=== PATIENT | male | born 1950 | race Caucasian/White ===

== ENCOUNTER 2020-06-14 15:20 | Emergency (ER) | payer SELFPAY ==
--- NOTE | 2020-06-14 15:42 | PM.DDS ---
Discharge Sum: Prov Provider Primary care physician: UNKNOWN,DOCTOR <LINSEY Brizuela - Last Filed: 06/14/20 16:00> Admitting provider: faisal <LINSEY Brizuela - Last Filed: 06/14/20 16:00> Attending physician on admission: Socrates Gunderson <LINSEY Brizuela - Last Filed: 06/14/20 16:00> Pronouncing clinician: Karol Eli <LINSEY Brizuela - Last Filed: 06/14/20 16:00> Discharge Sum: Diag PCOD Cardiac arrest <LINSEY Brizuela - Last Filed: 06/14/20 16:00> Contributing Factors (1) Cardiac arrest: Discharge Sum: Summary Date and Time Date of : 06/14/20 <LINSEY Brizuela - Last Filed: 06/14/20 16:00> Time of : 15:28 <LINSEY Brizuela - Last Filed: 06/14/20 16:00> Summary Details: Patient brought to our ED via EMS according to EMS patient was found unresponsive. While with EMS patient was given 4 doses of epi q3 minutes with CPR ,1 amiodarone given before arriving and bicard to the ED. CPR performed on patient for total of 29 with PEA . Patient intubated 7.0, 2627 at the lip, blood sugar 240. pupil fixed and dilated. patient blue in color from head to nipple -1520 arrived to the ED -1521 CPR in progress shocked - 1522 CPR in progress -1523 epi given -1524 lidocaine given -1525 CPR in progress patient shocked-v fib -1526 epi given -1527-patient asystole -1528 time of called Total of 34 minutes Call to patient mother Malaika at [phone] informed her that patient was . <LINSEY Brizuela - Last Filed: 06/14/20 16:00> Additional Data Confirmation of as documented by pronouncing clinician: no pulse, no respirations, no heart sounds and pupils fixed and dilated <LINSEY Brizuela - Last Filed: 06/14/20 16:00> Family: not available <LINSEY Brizuela - Last Filed: 06/14/20 16:00> Attending physician: I was the attending physician operations officer afloat during the code. I was not present for the code as I was performing and emergent intubation on another patient so I was not personally present. It was run by Karol Eli, EMS and other ER staff. <Socrates Gunderson DO - Last Filed: 06/15/20 00:19>
--- NOTE | 2020-06-14 16:01 | PC.NURSE ---
Contacted babbitt spinner Scar Benson at this time, report provided, all questions answered.
== END 2020-06-14 15:28 | disposition expired ==
PROVIDERS: Emergency Provider Family Medicine
DX: I46.9 Cardiac arrest, cause unspecified (principal)
CPT/HCPCS: 92950; 99285; J0171; J0282; J2001; J7030